=== PATIENT | female | born 1955 | race Caucasian/White ===

== ENCOUNTER 2017-07-03 09:08 | Outpatient (CLI) | payer OTHER ==
[~2017-07-03 09:08] MED LIST: HUMULIN N100 U/ML; HYZAAR 100-121 UDTAB
== END 2017-07-03 09:23 | disposition home or self-care (01) ==
LOC: LAB 09:08
DX: C64.2 Malignant neoplasm of left kidney, except renal pelvis (principal)

== ENCOUNTER 2017-07-03 09:57 | Outpatient (CLI) | payer OTHER | END 2017-07-03 13:34 | disposition home or self-care (01) | LOC: TOM 09:57 | DX: C64.2 Malignant neoplasm of left kidney, except renal pelvis (principal) ==